=== PATIENT | male | born 2000 | race Two or more races ===

== ENCOUNTER 2024-02-10 19:59 | Emergency (ER) | payer MEDICAID, OTHER ==
[~2024-02-10] VITALS: Ht 170.2 cm; Wt 61.9 kg
[2024-02-10 23:30] LABS: Urine Bacteria None Seen /hpf (None Seen)
[2024-02-10 23:36] LABS: Basophils # (auto) 0 10 ^3/uL (0-0.2); Basophils % (auto) 0.1 % (0.0-2.0); Eosinophils # (auto) 0 10 ^3/uL (0-0.8); Eosinophils % (auto) 0.7 % (0.0-7.0); Hematocrit 50.6 % (41.0-53.0); Hemoglobin 17.4 g/dL (13.5-17.5); Lymphocytes # (auto) 2.1 10 ^3/uL (0.4-5.4); Mean Corpuscular Hemoglobin 31.2 pg (28.0-32.0); Mean Corpuscular Hgb Conc. 34.4 g/dL (32.0-36.0); Mean Corpuscular Volume 90.5 fL (80.0-100.0); Monocytes # (auto) 0.8 10 ^3/uL (0-1.3); Monocytes % (auto) 11.4 % (0.0-12.0); Neutrophils # (auto) 3.8 10 ^3/uL (1.6-8.6); Neutrophils % (auto) 56.8 % (37.0-80.0); Nucleated Red Blood Cells % 0.2 %; Red Blood Cells 5.59 10^6/uL (4.5-5.90); Red Cell Distribution Width 12.5 % (11.8-14.3); White Blood Cell 6.7 10^3/uL (4.4-10.8)
[2024-02-10 23:40] LABS: Chloride 105 mmol/L (98-107); Potassium 3.9 mmol/L (3.5-5.1); Sodium 140 mmol/L (136-145)
[2024-02-10 23:41] LABS: Anion Gap 7 (5-15); Calcium 9.9 mg/dL (8.7-10.4); Carbon Dioxide 28 mmol/L (20-30)
[2024-02-10 23:44] LABS: Urine Blood 1+ /uL (Negative); Urine Clarity Clear (Clear); Urine Color Yellow (Yellow); Urine Mucus FEW (None Seen); Urine Protein, UAD TRACE (Negative); Urine Specific Gravity 1.024 (1.001-1.035); Urine Urobilinogen Normal (Negative); Urine WBC <1 /hpf (0 - 3); Urine pH 5.5 (5.0-9.0)
[2024-02-10 23:46] LABS: BUN/Creatinine Ratio 8.8 (10.0-20.0); Blood Urea Nitrogen 7 mg/dL (9-23); Glucose 88 mg/dL (74-106)
[2024-02-11 00:16] VITALS: BP 132/91; PULSE 66; RESP 18; TEMP 98.3; O2SAT 96
== END 2024-02-11 00:14 | disposition home or self-care (01) ==
LOC: ER 19:59
DX: R10.32 Left lower quadrant pain (principal); Z88.0 Allergy status to penicillin
CPT/HCPCS: 36415; 80048; 81001; 85025